=== PATIENT | female | born 1935 | race Caucasian/White ===

== ENCOUNTER 2018-07-11 11:04 | Emergency (ER) | payer OTHER ==
[~2018-07-11] VITALS: Ht 157.5 cm; Wt 38.2 kg
[2018-07-11 11:31] VITALS: Ht 157.5 cm; Wt 38.2 kg
[2018-07-11 12:25] LABS: BASOPHIL % 0.7 % (0-2); PLATELET COUNT 183 x10^3mcL (130-400); RED CELL DISTRIBUTION WIDTH 13.7 % (11.5-14.5)
[2018-07-11 12:31] LABS: CALCIUM 8.9 mg/dL (8.5-10.1); CARBON DIOXIDE 30.7 mmol/L (21-32); CHLORIDE SERUM 103 mmol/L (98-107); CREATININE SERUM 0.8 mg/dL (0.6-1.0); GLUCOSE SERUM 153 mg/dL (74-106); POTASSIUM SERUM 3.5 mmol/L (3.5-5.1); SODIUM SERUM 140 mmol/L (136-145)
[2018-07-11 12:35] LABS: ALBUMIN 3.6 g/dL (3.4-5.0); ALKALINE PHOSPHATASE 74 U/L (46-116); ALT/SGPT 17 U/L (14-59); AST/SGOT 14 U/L (15-37); BILIRUBIN TOTAL 0.4 mg/dL (0.20-1.00); CHOLESTEROL 195 mg/dL (<200); HDL CHOLESTEROL 73 mg/dL (40-60); PHOSPHOROUS 3.3 mg/dL (2.5-4.9); TOTAL PROTEIN, SERUM 7.1 g/dL (6.4-8.2); URIC ACID 4.4 mg/dL (2.6-6.0)
[2018-07-11 18:57] VITALS: BP 113/49
== END 2018-07-11 18:58 | disposition short-term general hospital (02) ==
LOC: ED 11:04
PROVIDERS: Emergency Medicine
DX: I60.9 Nontraumatic subarachnoid hemorrhage, unspecified (principal); I10 Essential (primary) hypertension
CPT/HCPCS: J1953; J7030; Q0092

== ENCOUNTER 2018-07-24 10:22 | Emergency (ER) | payer OTHER ==
[~2018-07-24] VITALS: Ht 157.5 cm; Wt 36.7 kg
[2018-07-24 10:30] VITALS: Ht 157.5 cm; Wt 36.7 kg
[2018-07-24 13:00] VITALS: BP 140/79
== END 2018-07-24 13:00 | disposition home or self-care (01) ==
LOC: ED 10:22
DX: M79.605 Pain in left leg (principal); M54.5 Low back pain; I10 Essential (primary) hypertension; Z86.73 Personal history of transient ischemic attack (TIA), and cerebral infarction without residual deficits
CPT/HCPCS: Q0092

== ENCOUNTER 2019-07-11 07:50 | Emergency (ER) | payer OTHER ==
[~2019-07-11] VITALS: Ht 157.5 cm; Wt 41.3 kg
[2019-07-11 07:57] VITALS: Ht 157.5 cm; Wt 41.3 kg
[2019-07-11 09:36] LABS: PLATELET COUNT 180 x10^3mcL (130-400); RED CELL DISTRIBUTION WIDTH 12.9 % (11.5-14.5)
[2019-07-11 10:04] LABS: CALCIUM 8.8 mg/dL (8.5-10.1); CARBON DIOXIDE 30.2 mmol/L (21-32); CHLORIDE SERUM 105 mmol/L (98-107); CREATININE SERUM 0.7 mg/dL (0.6-1.0); GLUCOSE SERUM 92 mg/dL (74-106); POTASSIUM SERUM 4.7 mmol/L (3.5-5.1); SODIUM SERUM 141 mmol/L (136-145)
[2019-07-11 10:07] LABS: ALBUMIN 3.5 g/dL (3.4-5.0); ALKALINE PHOSPHATASE 70 U/L (46-116); ALT/SGPT 17 U/L (14-59); AST/SGOT 13 U/L (15-37); BILIRUBIN TOTAL 0.3 mg/dL (0.20-1.00); CHOLESTEROL 191 mg/dL (<200); TOTAL PROTEIN, SERUM 6.7 g/dL (6.4-8.2)
[2019-07-11 11:40] VITALS: BP 138/78
== END 2019-07-11 11:40 | disposition home or self-care (01) ==
LOC: ED 07:50
PROVIDERS: Specialist
DX: H81.10 Benign paroxysmal vertigo, unspecified ear (principal); Z86.73 Personal history of transient ischemic attack (TIA), and cerebral infarction without residual deficits
CPT/HCPCS: G0480; J7040; J8597; Q0092